=== PATIENT | female | born 1975 | race African-American/Black ===

== ENCOUNTER 2017-05-05 12:01 | Emergency (ER) | payer SELFPAY ==
[~2017-05-05] VITALS: Ht 162.6 cm; Wt 80.0 kg
[2017-05-05] MEDS ORDERED: IBUPROFEN 600MG TABLET PO ONE (16:15)
[2017-05-05] MEDS ORDERED: ONDANSETRON 4MG ODT PO ONE (16:45)
[2017-05-05 18:20] VITALS: BP 124/71
== END 2017-05-05 18:24 | disposition home or self-care (01) ==
LOC: ER 12:01
DX: S39.012A Strain of muscle, fascia and tendon of lower back, initial encounter (principal); V89.2XXA Person injured in unspecified motor-vehicle accident, traffic, initial encounter; Y93.89 Activity, other specified; Y99.8 Other external cause status; Y92.89 Other specified places as the place of occurrence of the external cause
CPT/HCPCS: 72100; 81025; 99284; Q0162